=== PATIENT | female | born 1980 | race African-American/Black ===

== ENCOUNTER 2023-03-05 14:38 | Inpatient (IN) | payer BC, OTHER ==
[2023-03-05 18:07] VITALS: BMI 24.3
[2023-03-05] MEDS ORDERED: guaiFENesin 600 MG TABLET.ER (FP) PO PRN (19:27)
[2023-03-05] MEDS ORDERED: NALOXONE HCL (KLOXXADO) 8 MG SPRAY NS PRN (19:27)
[2023-03-05] MEDS ORDERED: BISMUTH SUBSALICYLATE 524 MG/30 ML PO PRN (19:27)
[2023-03-05] MEDS ORDERED: ONDANSETRON *ODT* 4 MG TABLET SL PRN (19:27)
[2023-03-05] MEDS ORDERED: MAGNESIUM HYDROX 2400MG/30ML ORAL SUSPENSION 30 ML CUP PO PRN (19:27)
[2023-03-05] MEDS ORDERED: NALOXONE HCL 0.4 MG/ML VIAL IM PRN (19:27)
[2023-03-05] MEDS ORDERED: DICYCLOMINE HCL 10 MG CAPSULE PO PRN (19:27)
[2023-03-05] MEDS ORDERED: LOPERAMIDE HCL 2 MG CAPSULE PO PRN (19:27)
[2023-03-05] MEDS ORDERED: BENZONATATE 200 MG CAPSULE PO PRN (19:27)
[2023-03-05] MEDS ORDERED: MAG HYDROX/AL HYDROX/SIMETH 30 ML UNIT-DOSE CUP PO PRN (19:27)
[2023-03-05] MEDS ORDERED: IBUPROFEN 400 MG TABLET (FP) PO PRN (19:27)
[2023-03-05] MEDS ORDERED: BENZOCAINE/MENTHOL (CHLORASEPTIC ) LOZENGE MM PRN (19:27)
[2023-03-05] MEDS: THIAMINE HCL 100 MG TABLET (FP) PO SCH (22:08)
[2023-03-05] MEDS: MELATONIN 5 MG TABLETS PO SCH (22:08)
[2023-03-05] MEDS: METHOCARBAMOL 500 MG TABLET PO PRN (22:09)
[2023-03-06] MEDS: BICTEGRAV/EMTRICIT/TENOFOV (BIKTARVY) 50-200-25 MG TABLET PO SCH (07:30)
[2023-03-06] MEDS ORDERED: methaDONE HCL 10 MG TABLET PO SCH (08:45)
[2023-03-06] MEDS ORDERED: levETIRAcetam 500 MG TABLET (FP) PO ONE (10:15)
[2023-03-06] MEDS: PRENATAL VITAMINS W/ FOLIC ACID TABLET (FP) PO SCH (10:16)
[2023-03-06] MEDS: diazePAM 5 MG TABLET PO SCH ×3 (10:17→22:07)
[2023-03-06] MEDS: methaDONE HCL 40 MG DISPERSABLE TABLET PO SCH (10:54)
[2023-03-06] MEDS: DIVALPROEX NA *ER* EXTEND REL 500 MG TABLET.SA (FP) PO SCH (12:06)
[2023-03-06] MEDS: ALLOPURINOL 100 MG TABLET (FP) PO SCH (12:06)
[2023-03-06] MEDS: LEVOTHYROXINE NA 25 MCG TABLET (FP) PO SCH (12:06)
[2023-03-06] MEDS: NICOTINE 14 MG/24 HOURS TOPICAL PATCH TD SCH (13:42)
[2023-03-06] MEDS: diazePAM 5 MG TABLET PO PRN (14:06)
[2023-03-06] MEDS: ACETAMINOPHEN 325 MG TABLET (FP) PO PRN (17:33)
[2023-03-06 19:47] LABS: HEMATOCRIT 34.2 % (32.4-45.2); HEMOGLOBIN 11.4 GM/dL (10.7-15.3); MCH 29.8 pg (25.7-33.7); MCHC 33.4 g/dl (32.0-36.0); MEAN CELL VOLUME 89.1 fl (80-96); MEAN PLT VOLUME 8.8 fl (7.5-11.1); PLATELET COUNT 375 10^3/uL (134-434); RBC 3.84 M/mm3 (3.60-5.2); RDW 15.7 % (11.6-15.6); WHITE BLOOD COUNT 4.1 K/mm3 (4.0-10.0)
[2023-03-06 19:50] LABS: CHLORIDE 103 mmol/L (98-107); POTASSIUM 4.2 mmol/L (3.5-5.1); SODIUM 137 mmol/L (136-145)
[2023-03-06 20:07] LABS: BLOOD UREA NITROGEN 11.2 mg/dL (7-18); CALCIUM 8.7 mg/dL (8.5-10.1); GLUCOSE,RANDOM 71 mg/dL (74-106)
[2023-03-06 20:08] LABS: ALBUMIN 3.4 g/dl (3.4-5.0); ANION GAP 7 mmol/L (4-13); CO2 26 mmol/L (21-32)
[2023-03-06 20:10] LABS: CREATININE 0.8 mg/dL (0.55-1.3); SGOT/AST 24 U/L (15-37); SGPT/ALT 16 U/L (13-61)
[2023-03-06 20:12] LABS: BILIRUBIN,TOTAL 0.8 mg/dL (0.2-1); TOT PROT 9.1 g/dl (6.4-8.2)
[2023-03-06 20:13] LABS: ALK PHOS 209 U/L (45-117)
[2023-03-06] MEDS: ATORVASTATIN CA 40 MG TABLET (FP) PO SCH (22:06)
[2023-03-06] MEDS: THIAMINE HCL 100 MG TABLET (FP) PO SCH (22:06)
[2023-03-06] MEDS: QUEtiapine FUMARATE 50 MG TABLET PO SCH (22:06)
[2023-03-06] MEDS: MELATONIN 5 MG TABLETS PO SCH (22:06)
[2023-03-07] MEDS: diazePAM 5 MG TABLET PO SCH ×4 (05:44→22:18)
[2023-03-07] MEDS: methaDONE HCL 40 MG DISPERSABLE TABLET PO SCH (05:44)
[2023-03-07] MEDS: METHOCARBAMOL 500 MG TABLET PO PRN (05:45)
[2023-03-07] MEDS: LEVOTHYROXINE NA 25 MCG TABLET (FP) PO SCH (07:35)
[2023-03-07] MEDS: BICTEGRAV/EMTRICIT/TENOFOV (BIKTARVY) 50-200-25 MG TABLET PO SCH (07:35)
[2023-03-07] MEDS: hydrOXYzine PAMOATE 25 MG CAPSULE (FP) PO PRN (09:42)
[2023-03-07] MEDS: DIVALPROEX NA *ER* EXTEND REL 500 MG TABLET.SA (FP) PO SCH (10:05)
[2023-03-07] MEDS: ALLOPURINOL 100 MG TABLET (FP) PO SCH (10:06)
[2023-03-07] MEDS: NICOTINE 14 MG/24 HOURS TOPICAL PATCH TD SCH (10:06)
[2023-03-07] MEDS: PRENATAL VITAMINS W/ FOLIC ACID TABLET (FP) PO SCH (10:06)
[2023-03-07] MEDS: IBUPROFEN 600 MG TABLET (FP) PO PRN (10:09)
[2023-03-07] MEDS: diazePAM 5 MG TABLET PO PRN ×2 (14:07→19:31)
[2023-03-07] MEDS: ACETAMINOPHEN 325 MG TABLET (FP) PO PRN (17:20)
[2023-03-07] MEDS: POLYETHYLENE GLYCOL (HEALTHYLAX) 3350 17 GM PACKET PO PRN (19:07)
[2023-03-07] MEDS: QUEtiapine FUMARATE 50 MG TABLET PO SCH (22:17)
[2023-03-07] MEDS: MELATONIN 5 MG TABLETS PO SCH (22:17)
[2023-03-07] MEDS: THIAMINE HCL 100 MG TABLET (FP) PO SCH (22:17)
[2023-03-07] MEDS: ATORVASTATIN CA 40 MG TABLET (FP) PO SCH (22:17)
[2023-03-08] MEDS: diazePAM 5 MG TABLET PO PRN ×3 (00:43→17:32)
[2023-03-08] MEDS: diazePAM 5 MG TABLET PO SCH ×3 (05:46→22:07)
[2023-03-08] MEDS: hydrOXYzine PAMOATE 25 MG CAPSULE (FP) PO PRN ×2 (05:47→14:02)
[2023-03-08] MEDS: LEVOTHYROXINE NA 25 MCG TABLET (FP) PO SCH (06:28)
[2023-03-08] MEDS: BICTEGRAV/EMTRICIT/TENOFOV (BIKTARVY) 50-200-25 MG TABLET PO SCH (07:35)
[2023-03-08] MEDS: methaDONE HCL 40 MG DISPERSABLE TABLET PO SCH (09:31)
[2023-03-08] MEDS: DIVALPROEX NA *ER* EXTEND REL 500 MG TABLET.SA (FP) PO SCH (09:35)
[2023-03-08] MEDS: PRENATAL VITAMINS W/ FOLIC ACID TABLET (FP) PO SCH (09:35)
[2023-03-08] MEDS: NICOTINE 14 MG/24 HOURS TOPICAL PATCH TD SCH (09:35)
[2023-03-08] MEDS: ALLOPURINOL 100 MG TABLET (FP) PO SCH (10:34)
[2023-03-08] MEDS: POLYETHYLENE GLYCOL (HEALTHYLAX) 3350 17 GM PACKET PO PRN (17:29)
[2023-03-08] MEDS: ACETAMINOPHEN 325 MG TABLET (FP) PO PRN (17:32)
[2023-03-08] MEDS: IBUPROFEN 600 MG TABLET (FP) PO PRN (19:57)
[2023-03-08] MEDS: QUEtiapine FUMARATE 50 MG TABLET PO SCH (22:07)
[2023-03-08] MEDS: MELATONIN 5 MG TABLETS PO SCH (22:07)
[2023-03-08] MEDS: ATORVASTATIN CA 40 MG TABLET (FP) PO SCH (22:07)
[2023-03-08] MEDS: THIAMINE HCL 100 MG TABLET (FP) PO SCH (22:07)
[2023-03-08] MEDS: METHOCARBAMOL 500 MG TABLET PO PRN (22:10)
[2023-03-09] MEDS: hydrOXYzine PAMOATE 25 MG CAPSULE (FP) PO PRN ×2 (03:03→11:23)
[2023-03-09] MEDS: IBUPROFEN 600 MG TABLET (FP) PO PRN (03:03)
[2023-03-09] MEDS: methaDONE HCL 40 MG DISPERSABLE TABLET PO SCH (05:22)
[2023-03-09] MEDS: diazePAM 5 MG TABLET PO SCH ×2 (05:22→17:24)
[2023-03-09] MEDS: LEVOTHYROXINE NA 25 MCG TABLET (FP) PO SCH (06:17)
[2023-03-09] MEDS: BICTEGRAV/EMTRICIT/TENOFOV (BIKTARVY) 50-200-25 MG TABLET PO SCH (07:35)
[2023-03-09 09:04] VITALS: RESP 18
[2023-03-09] MEDS: PRENATAL VITAMINS W/ FOLIC ACID TABLET (FP) PO SCH (10:09)
[2023-03-09] MEDS: DIVALPROEX NA *ER* EXTEND REL 500 MG TABLET.SA (FP) PO SCH (10:09)
[2023-03-09] MEDS: ALLOPURINOL 100 MG TABLET (FP) PO SCH (10:10)
[2023-03-09] MEDS: NICOTINE 14 MG/24 HOURS TOPICAL PATCH TD SCH (10:11)
[2023-03-09] MEDS: ACETAMINOPHEN 325 MG TABLET (FP) PO PRN ×2 (11:23→17:25)
[2023-03-09] MEDS: cloNIDine HCL 0.1 MG TABLET PO PRN ×2 (11:23→22:26)
[2023-03-09] MEDS: POLYETHYLENE GLYCOL (HEALTHYLAX) 3350 17 GM PACKET PO PRN (11:29)
[2023-03-09] MEDS: QUEtiapine FUMARATE 50 MG TABLET PO SCH (22:25)
[2023-03-09] MEDS: ATORVASTATIN CA 40 MG TABLET (FP) PO SCH (22:25)
[2023-03-09] MEDS: METHOCARBAMOL 500 MG TABLET PO PRN (22:25)
[2023-03-09] MEDS: MELATONIN 5 MG TABLETS PO SCH (22:25)
[2023-03-09] MEDS: THIAMINE HCL 100 MG TABLET (FP) PO SCH (22:25)
[2023-03-10] MEDS: methaDONE HCL 40 MG DISPERSABLE TABLET PO SCH (05:50)
[2023-03-10] MEDS ORDERED: diazePAM 5 MG TABLET PO ONE (06:00)
[2023-03-10] MEDS: ACETAMINOPHEN 325 MG TABLET (FP) PO PRN (06:06)
[2023-03-10] MEDS: LEVOTHYROXINE NA 25 MCG TABLET (FP) PO SCH (06:27)
[2023-03-10] MEDS: BICTEGRAV/EMTRICIT/TENOFOV (BIKTARVY) 50-200-25 MG TABLET PO SCH (07:06)
[2023-03-10] MEDS: PRENATAL VITAMINS W/ FOLIC ACID TABLET (FP) PO SCH (09:18)
[2023-03-10] MEDS: DIVALPROEX NA *ER* EXTEND REL 500 MG TABLET.SA (FP) PO SCH (09:18)
[2023-03-10] MEDS: ALLOPURINOL 100 MG TABLET (FP) PO SCH (09:18)
[2023-03-10] MEDS: NICOTINE 14 MG/24 HOURS TOPICAL PATCH TD SCH (09:19)
[2023-03-10 10:08] VITALS: BP 130/66; PULSE 70; TEMP 97.5
== END 2023-03-10 09:48 | disposition other institution (70) | DRG 897 ==
LOC: YASAS 14:38 → Y3N 18:28
PROVIDERS: ADMIT Allergy & Immunology; ATTEND Surgery
PROC: HZ2ZZZZ Detoxification Services for Substance Abuse Treatment (ICD-10-PCS; principal; 2023-03-05)
DX: F10.230 Alcohol dependence with withdrawal, uncomplicated (principal); F11.20 Opioid dependence, uncomplicated; F14.20 Cocaine dependence, uncomplicated; F12.20 Cannabis dependence, uncomplicated; F17.210 Nicotine dependence, cigarettes, uncomplicated; Z21 Asymptomatic human immunodeficiency virus [HIV] infection status; E03.9 Hypothyroidism, unspecified; M10.9 Gout, unspecified; Z62.810 Personal history of physical and sexual abuse in childhood; Z91.410 Personal history of adult physical and sexual abuse
CPT/HCPCS: 36415; 80053; 80307; 85027; 86780; 87635; 87811; 93005; 93010; Q0162